=== PATIENT | female | born 1990 | race Caucasian/White ===

== ENCOUNTER 2021-04-13 15:21 | Emergency (ER) | payer OTHER ==
[2021-04-13 15:28] VITALS: BP 112/71; PULSE 73; TEMP 97; BMI 32.1
[2021-04-13] MEDS ORDERED: METHOCARBAMOL 500 MG TABLET PO ONE (16:43)
[2021-04-13] MEDS ORDERED: KETOROLAC TROMETHAMINE 30 MG/1 ML VIAL IM ONE (16:43)
[2021-04-13] MEDS ORDERED: LIDOCAINE 5% TOPICAL PATCH TP ONE (16:43)
[2021-04-13] MEDS ORDERED: LIDOCAINE 5% TOPICAL PATCH ONE (16:50)
[2021-04-13] MEDS ORDERED: KETOROLAC TROMETHAMINE 30 MG/1 ML VIAL ONE (16:51)
[2021-04-13] MEDS ORDERED: METHOCARBAMOL 500 MG TABLET ONE (16:51)
[2021-04-13 17:44] LABS: URINE APPEARANCE Clear; URINE BILIRUBIN Negative (NEGATIVE); URINE COLOR Yellow; URINE GLUCOSE (UA) Negative (NEGATIVE); URINE KETONE Negative (NEGATIVE); URINE LEUK ESTERASE Negative (NEGATIVE); URINE NITRITE Negative (NEGATIVE); URINE PROTEIN Negative (NEGATIVE); URINE UROBILINOGEN 0.2 mg/dL (0.2-1.0)
[2021-04-13 17:55] LABS: HCG,QUALITATIVE URINE Negative
== END 2021-04-13 19:37 | disposition home or self-care (01) ==
LOC: JERFT 15:21
PROC: 3E023GC Introduction of Other Therapeutic Substance into Muscle, Percutaneous Approach (ICD-10-PCS; principal; 2021-04-13)
DX: M54.5 Low back pain (principal)
CPT/HCPCS: 72100-TC-FY; 81003; 84703; 87086; 99284-25